=== PATIENT | female | born 1975 | race Two or more races ===

== ENCOUNTER → 2021-08-22 | Outpatient (CLI) | payer OTHER ==
--- NOTE | 2021-08-22 16:06 | RAD ---
INDICATION: Reason: SINUSITIS / Spl. Instructions: / History: . COMPARISON: None. TECHNIQUE: Axial CT images obtained through the paranasal sinuses. One or more of the following individualized dose reduction techniques were utilized for this examinat ion: 1. Automated exposure control; 2. Adjustment of the mA and/or kV according to patient size; 3 . Use of iterative reconstruction technique. FINDINGS: Calcifications at the bilateral parotid glands. Small osseous excrescence off of the left mandible at the temporomandibular joint. Filling defect within the right maxillary sinus measuring 27 mm which could be from mucous retention cyst or polyp. The rest of the paranasal sinuses are well aerated including the maxillary sinuses, sp henoid sinus and frontal sinus. Trace fluid in ethmoid air cells. IMPRESSION: * Filling defect within the right maxillary sinus which could be secondary to mucous retention cyst with another possible cause including polyp. * No CT evidence of sinusitis. Electronically signed by: Luis M Light MD (08/22/2021 4:04 PM) [id number]
== END ==
LOC: CT 14:33 → EDUNIT# 16:00
PROVIDERS: ATTEND Otolaryngology
DX: K11.8 Other diseases of salivary glands (principal)
CPT/HCPCS: 70486

== ENCOUNTER → 2021-08-22 | Outpatient (CLI) | payer OTHER ==
--- NOTE | 2021-08-22 16:23 | RAD ---
INDICATION: Reason: CYSTITIS / Spl. Instructions: / History: COMPARISON: CT from September 2020 TECHNIQUE: Grayscale and color ultrasound images obtained of the bilateral kidneys and bladder. FINDINGS: Right Kidney: 111 mm. Left Kidney: 118 mm. Mild right-sided hydronephrosis. Bladder: 97 cc prevoid. Bilateral ureter jets. IMPRESSION: * Mild right hydronephrosis. Electronically signed by: Luis M Light MD (08/22/2021 4:20 PM) [id number]
== END ==
LOC: US 14:40
PROVIDERS: ATTEND Urology
DX: N13.30 Unspecified hydronephrosis (principal); N30.20 Other chronic cystitis without hematuria
CPT/HCPCS: 76770

== ENCOUNTER → 2021-09-11 | Outpatient (CLI) | payer OTHER ==
[~2021-09-11] MED LIST: IOHEXOL 350 MG/ML 100 ML VIAL. IV ONE
--- NOTE | 2021-09-11 09:25 | RAD ---
Exam: CT abdomen/pelvis with and without intravenous contrast Indication: Right renal stone/lithotripsy: Bilateral flank pain Comparison: CT chest 11/25/2020 Technique: Helical CT imaging performed of the abdomen and pelvis before and after the intravenous ad ministration of 100 mL Omnipaque 350 contrast per urogram protocol. Sagittal and coronal reformats w ere obtained. One or more of the following individualized dose reduction techniques were utilized for this examinat ion: 1. Automated exposure control 2. Adjustment of the mA and/or kV according to patient size 3. Use of iterative reconstruction technique. Findings: Lower chest: Extensive interstitial bandlike opacities in the lower lobes have resolved. There is a r esidual focal linear and nodular opacity in the posterior inferior left lower lobe, likely scarring. The heart is normal in size. Liver: Normal. Gallbladder/Biliary Tree: Normal. Pancreas: Normal. Spleen: Normal. Adrenal Glands: Normal. Kidneys/Ureters/Bladder: Kidneys are normal in size and enhance symmetrically. No nephrolithiasis or hydronephrosis. There is a 9 mm hypodense lesion in the left kidney, too small to catheterize but lik deborah a simple cyst. There is contrast in the renal collecting systems and in the proximal to mid left ureter. No contrast in the right ureter however both ureters are normal caliber without evidence of u reterolithiasis. The bladder is normal in appearance. Reproductive Organs: Uterus is anteverted. Suspect several fibroids. Ovaries are normal in appearance . Stomach, small bowel, and colon: Stomach, small bowel, and colon are normal. There is a large volume stool. The appendix is normal. Vasculature: Abdominal aorta is normal in caliber. Lymph Nodes: No lymphadenopathy. Peritoneum and retroperitoneum: No free fluid or free air. Bones: No acute osseous abnormality. Miscellaneous: None IMPRESSION: 1. No urolithiasis or hydronephrosis. 2. Resolution of interstitial opacities in the lung bases on 11/25/2020 with small area of residual sc arring in the posterior left lower lobe. 3. Probable fibroids in the uterus. Electronically signed by: Martine Cates MD (09/11/2021 9:22 AM) [id number]
== END ==
LOC: CT 07:48
PROVIDERS: ATTEND Urology
DX: N13.30 Unspecified hydronephrosis (principal)
CPT/HCPCS: 74178; Q9967